=== PATIENT | male | born 1970 | race Caucasian/White ===

== ENCOUNTER 2020-11-11 13:53 | Inpatient (IN) | payer BC, OTHER ==
[~2020-11-11] VITALS: Ht 182.9 cm; Wt 102.1 kg
--- NOTE | 2020-11-11 14:56 | NUR ---
VS obtained at this time
[2020-11-11] MEDS ORDERED: HYDROmorphone 1 MG/ML, 1ML INJ IVPush PRN ×2 (15:00→20:00)
[2020-11-11] MEDS ORDERED: ONDANSETRON 2MG/ML, 2ML IVPush ONE (15:00)
[2020-11-11] MEDS ORDERED: SODIUM CHLORIDE 0.9% 1,000ML IVBOLUS ONE (15:00)
[2020-11-11] MEDS ORDERED: SODIUM CHLORIDE FLUSH 10ML SYR IVF ONE (15:00)
[2020-11-11 15:09] LABS: BASOPHILS % (AUTO) 0 % (0-1); EOSINOPHILS % (AUTO) 1 % (1-7); LYMPHOCYTES % (AUTO) 5 % (22-44); MEAN CORPUSCULAR HEMOGLOBIN 31.9 pg (27.5-34.5); MEAN PLATELET VOLUME 8.5 fL (7.4-10.4); MONOCYTES % (AUTO) 8 % (2-9); NEUTROPHILS % (AUTO) 86 % (42-75); PLATELET COUNT 445 x10^3/uL (130-400); RED BLOOD COUNT 3.77 x10^6/uL (4.38-5.82); RED CELL DISTRIBUTION WIDTH 13.2 % (9.4-14.8)
[2020-11-11] MEDS ORDERED: ONDANSETRON 2MG/ML, 2ML ONE (15:11)
[2020-11-11] MEDS ORDERED: HYDROmorphone 2 MG/ML, 1ML ONE (15:11)
[2020-11-11 15:22] LABS: ALANINE AMINOTRANSFERASE 24 U/L (12-78); ALBUMIN 2.8 g/dL (3.4-5.0); ANION GAP 10 mmol/L (5-15); CALCIUM 8.3 mg/dL (8.5-10.1); CHLORIDE 101 mmol/L (98-107)
[2020-11-11 15:23] LABS: HCT (SEDRATE) 33.9 % (39.2-51.8)
[2020-11-11 15:29] LABS: ALKALINE PHOSPHATASE 157 U/L (45-117); BILIRUBIN,TOTAL 0.9 mg/dL (0.2-1.0); TOTAL PROTEIN 7.6 g/dL (6.4-8.2)
[2020-11-11 15:32] LABS: C-REACTIVE PROTEIN, QUANT > 19.00 mg/dL (0.02-0.49)
--- NOTE | 2020-11-11 15:59 | NUR ---
Task rn: poc updated with ERP (dr. moura) in r/t to poc in setting of potential sepsis (recent surgery, tachycardic, subjective fevers, elevated wbc/d-dimer/procalcitonin Blood cultures drawn, 1l ns infusing. Erp asked about abx/additional ivf. Erp considering. Will continue to closely monitor
[2020-11-11] MEDS ORDERED: LORazepam 2 MG/ML, 1ML IV ONE (16:30)
[2020-11-11] MEDS ORDERED: LORazepam 2 MG/ML, 1ML ONE (17:00)
[2020-11-11] MEDS ORDERED: VANCOMYCIN PER PHARMACY MC ONE (17:00)
[2020-11-11] MEDS ORDERED: PIPERACILLIN/TAZO 3.375 GM in DEXTROSE 5% 50 ML IVPB ONE ×2 (17:00→17:30)
[2020-11-11] MEDS ORDERED: OMNIPAQUE 350 MG/ML, 150 ML BOTTLE ONE (17:05)
[2020-11-11] MEDS: DAPTOMYCIN 600 MG in SODIUM CHLORIDE 0.9% 100 ML IV SCH (17:30)
[2020-11-11] MEDS ORDERED: VANCOMYCIN 2,500 MG in SODIUM CHLORIDE 0.9% 500 ML IV ONE (17:30)
--- NOTE | 2020-11-11 17:30 | NUR ---
admitting provider paged to ask about patient getting more fluids due to increasing HR. awaiting call back
--- NOTE | 2020-11-11 17:45 | NUR ---
Dr. Ybarra said to give another 1L of NS for increased HR.
[2020-11-11 17:48] LABS: MICROSCOPIC NOT IND
[2020-11-11] MEDS ORDERED: SODIUM CHLORIDE 0.9% 1,000 ML IV SCH (18:00)
[2020-11-11] MEDS ORDERED: FENTANYL PF 100 MCG/2ML ONE ×3 (18:04→20:01)
[2020-11-11] MEDS ORDERED: SUCCINYLCHOLINE 20 MG/ML, 10ML ONE (18:44)
[2020-11-11] MEDS ORDERED: PROPOFOL 10 MG/ML, 20ML ONE (18:44)
--- NOTE | 2020-11-11 19:15 | NUR ---
patient taken to MRI. Patient will be recovered in PACU and then will either taken to his room upstairs to the hospital or back down to ER if no beds available
[2020-11-11] MEDS ORDERED: PROMETHAZINE 25 MG SUPP PR PRN (20:00)
[2020-11-11] MEDS ORDERED: LABETALOL 5MG/ML, 20ML IV PRN (20:00)
[2020-11-11] MEDS ORDERED: OXYcodone 5 MG/5 ML ORAL.SOL UDC PO PRN (20:00)
[2020-11-11] MEDS ORDERED: METOPROLOL 1 MG/ML, 5ML IV PRN (20:00)
[2020-11-11] MEDS ORDERED: ALBUTEROL/IPRATROPIUM 2.5MG/0.5MG, 3 ML NPPB PRN (20:00)
[2020-11-11] MEDS ORDERED: LORazepam 2 MG/ML, 1ML IVPush PRN (20:00)
[2020-11-11] MEDS ORDERED: ONDANSETRON 2MG/ML, 2ML IVPush PRN (20:00)
[2020-11-11] MEDS ORDERED: hydrALAzine 20 MG/ML, 1ML IV PRN (20:00)
[2020-11-11] MEDS ORDERED: MEPERIDINE/PF 25MG/0.5ML IVPush PRN (20:00)
[2020-11-11] MEDS ORDERED: METHOCARBAMOL 1,000 MG in DEXTROSE 5% 100 ML IV PRN (20:00)
[2020-11-11] MEDS ORDERED: FENTANYL PF 100 MCG/2ML IV PRN (20:00)
[2020-11-11] MEDS ORDERED: ACETAMINOPHEN 325 MG TABLET PO PRN ×2 (20:00→23:30)
[2020-11-11] MEDS ORDERED: PROMETHAZINE 25 MG/ML, 1ML IVPush PRN (20:00)
[2020-11-11] MEDS ORDERED: MEPERIDINE/PF 50 MG/ML ONE (20:04)
[2020-11-11] MEDS ORDERED: GADOTERATE 5 MMOL/10ML SYR ONE (20:26)
[2020-11-11] MEDS ORDERED: GADOTERATE 7.5 MMOL/15ML SYR ONE (20:26)
[2020-11-11 22:50] VITALS: BP 137/84
[2020-11-12] MEDS: morphine SULFATE 10 MG/ML, 1ML IVPush PRN ×2 (00:22→07:49)
[2020-11-12] MEDS: ACETAMINOPHEN 325 MG TABLET PO SCH ×3 (00:30→15:38)
[2020-11-12] MEDS ORDERED: LABETALOL 5MG/ML, 20ML IVPush PRN (00:30)
[2020-11-12] MEDS ORDERED: ONDANSETRON ODT 4 MG PO PRN (00:30)
[2020-11-12] MEDS ORDERED: POLYETHYLENE GLYCOL 17 GM PACKET PO PRN (00:30)
[2020-11-12] MEDS ORDERED: LIDODERM 5% PATCH TD PRN (00:30)
[2020-11-12] MEDS ORDERED: ENALAPRILAT 1.25 MG/ML, 2ML IVPush PRN (00:30)
[2020-11-12] MEDS ORDERED: BISACODYL 10 MG SUPP PR PRN (00:30)
[2020-11-12] MEDS ORDERED: ONDANSETRON 2MG/ML, 2ML IVPush PRN (00:30)
[2020-11-12] MEDS ORDERED: METHOCARBAMOL 1,000 MG in DEXTROSE 5% 100 ML IV ONE (01:30)
[2020-11-12] MEDS: DAPTOMYCIN 600 MG in SODIUM CHLORIDE 0.9% 100 ML IV SCH (01:34)
[2020-11-12] MEDS: GABAPENTIN 400 MG CAPSULE PO SCH ×3 (01:45→15:39)
[2020-11-12 02:26] VITALS: BP 129/81
[2020-11-12] MEDS: PIPERACILLIN/TAZO 3.375 GM in DEXTROSE 5% 50 ML IV SCH ×4 (02:55→21:21)
[2020-11-12] MEDS: OXYcodone IR 5MG TABLET PO PRN (03:45)
[2020-11-12] MEDS: NS + 20MEQ KCL 1,000 ML IV SCH ×2 (04:04→15:35)
[2020-11-12] MEDS ORDERED: OMEP20TA9 PO (06:09)
[2020-11-12] MEDS ORDERED: GABA-827 PO (06:09)
[2020-11-12] MEDS ORDERED: CLON-364 PO (06:09)
[2020-11-12] MEDS ORDERED: OXYC-307 PO (06:09)
[2020-11-12 06:38] LABS: BASOPHILS % (AUTO) 0 % (0-1); EOSINOPHILS % (AUTO) 0 % (1-7); LYMPHOCYTES % (AUTO) 5 % (22-44); MEAN PLATELET VOLUME 7.5 fL (7.4-10.4); MONOCYTES % (AUTO) 10 % (2-9); NEUTROPHILS % (AUTO) 85 % (42-75); PLATELET COUNT 412 x10^3/uL (130-400); RED BLOOD COUNT 3.42 x10^6/uL (4.38-5.82); RED CELL DISTRIBUTION WIDTH 13.2 % (9.4-14.8)
[2020-11-12 06:52] LABS: ALANINE AMINOTRANSFERASE 18 U/L (12-78); ALBUMIN 2.4 g/dL (3.4-5.0); ANION GAP 8 mmol/L (5-15); CALCIUM 8.1 mg/dL (8.5-10.1); CHLORIDE 103 mmol/L (98-107); CREATININE 0.63 mg/dL (0.7-1.3)
[2020-11-12 07:02] LABS: ALKALINE PHOSPHATASE 90 U/L (45-117); BILIRUBIN,TOTAL 0.6 mg/dL (0.2-1.0)
[2020-11-12 08:30] VITALS: BP 147/91
[2020-11-12] MEDS: SENNA/DOCUSATE TABLET PO SCH (09:00)
[2020-11-12] MEDS ORDERED: LIDOCAINE-MPF 1%, 5ML ONE (09:28)
[2020-11-12] MEDS: HYDROmorphone 2 MG/ML, 1ML IVPush PRN ×3 (09:45→21:22)
[2020-11-12 11:19] LABS: GLUCOSE, CSF 81 mg/dL (40-80); TOTAL PROTEIN,CSF 25 mg/dL (15-45)
[2020-11-12 14:23] VITALS: BP 125/78
[2020-11-12] MEDS: ACETAMINOPHEN 500 MG TABLET PO SCH ×2 (16:00→21:21)
[2020-11-12 18:45] VITALS: BP 119/80
[2020-11-13] MEDS: NS + 20MEQ KCL 1,000 ML IV SCH ×3 (00:17→21:05)
[2020-11-13 01:02] VITALS: BP 122/78
[2020-11-13] MEDS: DAPTOMYCIN 600 MG in SODIUM CHLORIDE 0.9% 100 ML IV SCH (02:19)
[2020-11-13] MEDS: HYDROmorphone 2 MG/ML, 1ML IVPush PRN ×3 (02:19→16:53)
[2020-11-13] MEDS: PIPERACILLIN/TAZO 3.375 GM in DEXTROSE 5% 50 ML IV SCH ×4 (03:25→22:53)
[2020-11-13] MEDS: HYDROcodone/APAP 5/325 TABLET PO PRN (04:59)
[2020-11-13 06:14] LABS: BASOPHILS % (AUTO) 0 % (0-1); EOSINOPHILS % (AUTO) 1 % (1-7); LYMPHOCYTES % (AUTO) 8 % (22-44); MEAN CORPUSCULAR HEMOGLOBIN 32.3 pg (27.5-34.5); MEAN CORPUSCULAR HGB CONC 34.1 g/dL (33.2-36.2); MONOCYTES % (AUTO) 10 % (2-9); NEUTROPHILS % (AUTO) 80 % (42-75); PLATELET COUNT 405 x10^3/uL (130-400); RED BLOOD COUNT 3.08 x10^6/uL (4.38-5.82); RED CELL DISTRIBUTION WIDTH 13.9 % (9.4-14.8)
[2020-11-13 06:25] LABS: ALANINE AMINOTRANSFERASE 18 U/L (12-78); ALBUMIN 2.1 g/dL (3.4-5.0); ANION GAP 3 mmol/L (5-15); CALCIUM 8.2 mg/dL (8.5-10.1); CHLORIDE 108 mmol/L (98-107); CREATININE 0.79 mg/dL (0.7-1.3)
[2020-11-13 06:28] LABS: ALKALINE PHOSPHATASE 118 U/L (45-117); BILIRUBIN,TOTAL 0.6 mg/dL (0.2-1.0); TOTAL PROTEIN 6.5 g/dL (6.4-8.2)
[2020-11-13 06:54] VITALS: BP 113/72
[2020-11-13] MEDS: SENNA/DOCUSATE TABLET PO SCH (08:16)
[2020-11-13] MEDS: ACETAMINOPHEN 500 MG TABLET PO SCH ×2 (08:16→16:27)
[2020-11-13] MEDS: OXYcodone IR 5MG TABLET PO PRN ×2 (10:37→22:54)
[2020-11-13] MEDS ORDERED: LEVO88CA2 PO (13:01)
[2020-11-13] MEDS ORDERED: LEVO100C2 PO (13:01)
[2020-11-13 14:05] VITALS: BP 129/82
[2020-11-13 17:42] LABS: ANA SCREEN NEGATIVE (Negative)
[2020-11-13 19:47] VITALS: BP 150/90
[2020-11-14 00:27] VITALS: BP 151/68
[2020-11-14] MEDS: DAPTOMYCIN 600 MG in SODIUM CHLORIDE 0.9% 100 ML IV SCH (02:28)
[2020-11-14] MEDS: PIPERACILLIN/TAZO 3.375 GM in DEXTROSE 5% 50 ML IV SCH ×3 (04:40→21:15)
[2020-11-14 04:54] LABS: BASOPHILS % (AUTO) 1 % (0-1); EOSINOPHILS % (AUTO) 4 % (1-7); LYMPHOCYTES % (AUTO) 15 % (22-44); MEAN CORPUSCULAR HEMOGLOBIN 32.4 pg (27.5-34.5); MEAN CORPUSCULAR HGB CONC 34.4 g/dL (33.2-36.2); MONOCYTES % (AUTO) 9 % (2-9); NEUTROPHILS % (AUTO) 72 % (42-75); PLATELET COUNT 441 x10^3/uL (130-400); RED BLOOD COUNT 3.05 x10^6/uL (4.38-5.82); RED CELL DISTRIBUTION WIDTH 14.1 % (9.4-14.8)
[2020-11-14] MEDS: HYDROcodone/APAP 5/325 TABLET PO PRN ×4 (05:03→21:14)
[2020-11-14 05:11] LABS: ANION GAP 5 mmol/L (5-15); CALCIUM 9.3 mg/dL (8.5-10.1); CHLORIDE 106 mmol/L (98-107); CREATININE 0.62 mg/dL (0.7-1.3)
[2020-11-14] MEDS: NS + 20MEQ KCL 1,000 ML IV SCH (06:31)
[2020-11-14] MEDS: OXYcodone IR 5MG TABLET PO PRN (07:11)
[2020-11-14 09:54] VITALS: BP 131/78
[2020-11-14] MEDS: ENOXAPARIN 40 MG/0.4 ML SQ SCH (10:22)
[2020-11-14] MEDS: SENNA/DOCUSATE TABLET PO SCH (10:23)
[2020-11-14] MEDS: FLUCONAZOLE 400 MG/200 ML 200 ML IV SCH (11:35)
[2020-11-14 15:01] VITALS: BP 168/82
[2020-11-14 20:46] VITALS: BP 139/78
[2020-11-15] MEDS: NS + 20MEQ KCL 1,000 ML IV SCH ×4 (01:14→18:00)
[2020-11-15 01:18] VITALS: BP 127/81
[2020-11-15] MEDS: DAPTOMYCIN 600 MG in SODIUM CHLORIDE 0.9% 100 ML IV SCH (02:28)
[2020-11-15] MEDS: PIPERACILLIN/TAZO 3.375 GM in DEXTROSE 5% 50 ML IV SCH ×4 (03:27→20:31)
[2020-11-15 05:05] LABS: BASOPHILS % (AUTO) 1 % (0-1); EOSINOPHILS % (AUTO) 6 % (1-7); LYMPHOCYTES % (AUTO) 28 % (22-44); MEAN CORPUSCULAR HEMOGLOBIN 32.3 pg (27.5-34.5); MEAN CORPUSCULAR HGB CONC 34.1 g/dL (33.2-36.2); MEAN PLATELET VOLUME 7.8 fL (7.4-10.4); MONOCYTES % (AUTO) 11 % (2-9); NEUTROPHILS % (AUTO) 54 % (42-75); PLATELET COUNT 386 x10^3/uL (130-400); RED BLOOD COUNT 3.03 x10^6/uL (4.38-5.82); RED CELL DISTRIBUTION WIDTH 13.9 % (9.4-14.8)
[2020-11-15 05:10] LABS: CHLORIDE 109 mmol/L (98-107)
[2020-11-15 05:14] LABS: ANION GAP 7 mmol/L (5-15); CALCIUM 8.3 mg/dL (8.5-10.1); CREATININE 0.64 mg/dL (0.7-1.3)
[2020-11-15] MEDS: OXYcodone IR 5MG TABLET PO PRN ×2 (05:25→23:10)
[2020-11-15] MEDS: LEVOTHYROXINE 175 MCG TABLET PO SCH (05:25)
[2020-11-15] MEDS: SENNA/DOCUSATE TABLET PO SCH (08:41)
[2020-11-15] MEDS: ONDANSETRON 2MG/ML, 2ML IVPush PRN ×2 (08:41→17:13)
[2020-11-15] MEDS: ENOXAPARIN 40 MG/0.4 ML SQ SCH (08:48)
[2020-11-15 08:51] VITALS: BP 164/95
[2020-11-15] MEDS ORDERED: POTASSIUM CHLORIDE 40 MEQ in SODIUM CHLORIDE 0.9% 500 ML IV ONE (09:30)
[2020-11-15] MEDS: FLUCONAZOLE 400 MG/200 ML 200 ML IV SCH (11:18)
[2020-11-15 13:22] LABS: HCT (SEDRATE) 28.1 % (39.2-51.8)
[2020-11-15 15:59] VITALS: BP 165/95
[2020-11-15] MEDS: HYDROcodone/APAP 5/325 TABLET PO PRN (17:13)
[2020-11-15 20:21] VITALS: BP 169/92
[2020-11-16] MEDS: HYDROcodone/APAP 5/325 TABLET PO PRN ×3 (00:45→21:47)
[2020-11-16] MEDS: ONDANSETRON 2MG/ML, 2ML IVPush PRN (00:48)
[2020-11-16 00:56] VITALS: BP 162/93
[2020-11-16] MEDS: PIPERACILLIN/TAZO 3.375 GM in DEXTROSE 5% 50 ML IV SCH ×4 (02:24→21:36)
[2020-11-16] MEDS: DAPTOMYCIN 600 MG in SODIUM CHLORIDE 0.9% 100 ML IV SCH (03:12)
[2020-11-16] MEDS: NS + 20MEQ KCL 1,000 ML IV SCH (04:02)
[2020-11-16] MEDS: LEVOTHYROXINE 175 MCG TABLET PO SCH (05:19)
[2020-11-16 06:09] LABS: CHLORIDE 109 mmol/L (98-107)
[2020-11-16 06:13] LABS: BASOPHILS % (AUTO) 1 % (0-1); EOSINOPHILS % (AUTO) 7 % (1-7); LYMPHOCYTES % (AUTO) 36 % (22-44); MEAN CORPUSCULAR HEMOGLOBIN 32.2 pg (27.5-34.5); MEAN CORPUSCULAR HGB CONC 34.1 g/dL (33.2-36.2); MEAN PLATELET VOLUME 7.9 fL (7.4-10.4); MONOCYTES % (AUTO) 13 % (2-9); NEUTROPHILS % (AUTO) 43 % (42-75); PLATELET COUNT 382 x10^3/uL (130-400); RED BLOOD COUNT 3.12 x10^6/uL (4.38-5.82); RED CELL DISTRIBUTION WIDTH 13.9 % (9.4-14.8)
[2020-11-16 06:15] LABS: ANION GAP 7 mmol/L (5-15); CALCIUM 8.7 mg/dL (8.5-10.1); CREATININE 0.66 mg/dL (0.7-1.3)
[2020-11-16 08:00] VITALS: BP 162/92
[2020-11-16] MEDS: SENNA/DOCUSATE TABLET PO SCH (08:29)
[2020-11-16] MEDS: ENOXAPARIN 40 MG/0.4 ML SQ SCH (10:35)
[2020-11-16] MEDS: FLUCONAZOLE 400 MG/200 ML 200 ML IV SCH (10:36)
[2020-11-16 14:21] VITALS: BP 147/87
[2020-11-16 19:10] VITALS: BP 137/77
[2020-11-17 00:41] VITALS: BP 145/84
[2020-11-17] MEDS: DAPTOMYCIN 600 MG in SODIUM CHLORIDE 0.9% 100 ML IV SCH (03:41)
[2020-11-17] MEDS: PIPERACILLIN/TAZO 3.375 GM in DEXTROSE 5% 50 ML IV SCH ×2 (04:39→10:40)
[2020-11-17] MEDS: LEVOTHYROXINE 175 MCG TABLET PO SCH (04:39)
[2020-11-17] MEDS: HYDROcodone/APAP 5/325 TABLET PO PRN (04:40)
[2020-11-17 06:51] VITALS: BP 150/91
[2020-11-17] MEDS: SENNA/DOCUSATE TABLET PO SCH (08:10)
[2020-11-17] MEDS: ENOXAPARIN 40 MG/0.4 ML SQ SCH (10:00)
[2020-11-17] MEDS ORDERED: OXYC5TAB98 PO (12:19)
[2020-11-17] MEDS ORDERED: SENN-211 PO (12:19)
[2020-11-17] MEDS ORDERED: PRED10TA PO (12:19)
[2020-11-17 12:26] VITALS: BP 147/89
[2020-11-17] MEDS ORDERED: FLUCONAZOLE 200 MG TABLET PO SCH (14:00)
== END 2020-11-17 13:00 | disposition home or self-care (01) | DRG 872 ==
LOC: OR 16:50 → SUATTDRO 16:54 → EDIP 16:56 → OR 18:00 → 4EST 22:40
PROVIDERS: ADMIT Internal Medicine; ATTEND Internal Medicine
PROC: 009U3ZX Drainage of Spinal Canal, Percutaneous Approach, Diagnostic (ICD-10-PCS; principal; 2020-11-12)
PROC: B01B1ZZ Fluoroscopy of Spinal Cord using Low Osmolar Contrast (ICD-10-PCS; 2020-11-12)
DX: A41.9 Sepsis, unspecified organism (principal); E87.1 Hypo-osmolality and hyponatremia; K04.7 Periapical abscess without sinus; E87.6 Hypokalemia; B37.2 Candidiasis of skin and nail; D63.8 Anemia in other chronic diseases classified elsewhere; E03.9 Hypothyroidism, unspecified; F41.9 Anxiety disorder, unspecified; I10 Essential (primary) hypertension; J32.0 Chronic maxillary sinusitis; K59.00 Constipation, unspecified; M35.3 Polymyalgia rheumatica; Z20.822 Contact with and (suspected) exposure to COVID-19; Z96.651 Presence of right artificial knee joint; Z98.1 Arthrodesis status; Z88.8 Allergy status to other drugs, medicaments and biological substances; Z79.52 Long term (current) use of systemic steroids; Z88.1 Allergy status to other antibiotic agents; Z98.84 Bariatric surgery status
CPT/HCPCS: 36415; 62328; 70100; 70491; 71045; 71275; 72156; 72157; 72158; 80048; 80053; 81003; 82550; 82945; 82962; 83605; 84145; 84157; 84443; 85025; 85379; 85651; 86038; 86140; 86200; 86430; 86850; 86900; 87040; 87070; 87205; 87252; 87255; 89051; 93005; 93306; 96361; 96374; 96375; G0378; J0878; J1170; J1450; J1650; J2175; J2405; J2543; J2704; J3010; J3480; Q0162; Q9967; A9575; J0330; J2060; J2270; J2800; J7030; J7040; J7512